=== PATIENT | female | born 1975 | race Caucasian/White ===

== ENCOUNTER → 2017-02-15 | Outpatient (CLI) | payer BC ==
--- NOTE | ~2017-02-15 | MR18 ---
[facility] A Service of [facility] & [facility] / [facility] RADIOLOGY TEXT RESULTS PATIENT: LUCILLE RUBIO LOCATION: [facility] : 71 UNIT #: [id number] AGE: [address]: Jesse Willis II, MD SEX: F ORDER DR: [id number] [facility] [address]. [place], [place] [address] [id number] O MR#: [id number] Acc #: [id number] NAME: LUCILLE RUBIO : 1975 SEX: F STUDY DATE/TIME: 02/15/2017 10:47 UNIT: [facility] ROOM: STUDY DESCRIPTION: MR Brain Wo Contrast Attending Physician: Jesse Willis II., M.D. Referring Physician: Jesse Willis II., M.D. Ordering Physician: Jesse Willis II., M.D. Primary Care Physician: Ronna Gonzalez A.P.R.N. MRI CENTER REPORT This report is preliminary unless electronic signature is present. EXAM MRI of the brain without. HISTORY Chronic daily headaches for many years. Patient has a history of hypertension and migraines since she was little. Headaches are worsening in frequency. No known trauma. No history of cancer. TECHNIQUE MRI of the brain was performed without contrast using 1.5 T-imaging technique. Patient declined contrast administration. COMPARISON Head CT comparison 11/27/13. FINDINGS There is no evidence for a recent ischemic insult on the diffusion series. Incidental note made of a partially empty sella. There is no Chiari 1 malformation. There is no extraaxial fluid collection. The major intracranial flow voids are maintained. The ventricles are normal in size and configuration and there is only a mild periventricular white matter signal abnormality which is nonspecific, but possibly due to patient's severe longstanding migraine history or patient's history of hypertension. There is no intracranial mass effect or extraaxial fluid collection. The major intracranial flow voids are maintained. The mastoid air cells are clear. There is a mucous retention cyst or polyp in the right maxillary sinus with mild mucosal disease, ethmoid air cells but no sinus air fluid level. No intracranial mass effect. No MRI-evidence for intracranial hemorrhage. IMPRESSION [facility]. [facility] A Service of [facility] & [facility] / [facility] RADIOLOGY TEXT RESULTS PATIENT: LUCILLE RUBIO LOCATION: [facility] : [birth year] UNIT #: [id number] AGE: [address]: Jesse Willis II, MD SEX: F ORDER DR: 1. Mild nonspecific white matter disease, most apparent in the periventricular white matter, possibly related to the patient's history of hypertension or severe long-standing migraine. 2. Mild paranasal sinus disease without sinus air fluid level. 3. No extraaxial fluid collection or intracranial mass effect. Patient declined contrast administration. Dictated by... Alma Alanis M.D. THIS IS AN ELECTRONICALLY VERIFIED REPORT Alma Alanis M.D. at 02/17/2017 10:31 AM PERRY/jamison TD: 02/16/2017 19:53 JOB #: [id number] MRI CENTER REPORT Page 1 of 1 COPY
== END | disposition home or self-care (01) ==
LOC: CMRI 02-02 16:00
DX: R51 Headache (principal); I10 Essential (primary) hypertension; J32.8 Other chronic sinusitis; G93.89 Other specified disorders of brain
CPT/HCPCS: 70551